=== PATIENT | female | born 1980 | race Caucasian/White ===

== ENCOUNTER 2016-10-20 22:21 | Emergency (ER) | payer OTHER ==
--- NOTE | 2016-10-20 23:50 | PROVIDER DOCUMENTATION ---
HPI-Musculoskeletal Pain/Inj - GENERAL Chief Complaint: Fall Stated Complaint: FALL Time Seen by Provider: 10/20/16 23:39 Source: patient - HX OF PRESENT ILLNESS-MUSKULOSKELTAL Nature of Presenting Problem: 36 y/o WF c/o R shoulder pain s/p fall x 2 hours. Pt states she fell forward with her arm abducted and landed on her RUE. States that now she can't feel anything from her R shoulder down to her fingers, and states it is painful to touch. Pt is tearful and holding her arm in position of comfort. Denies any head injury, LOC, neck pain, back pain. Review of Systems - Adult - REVIEW OF SYSTEMS - ADULT Constitutional: reports: no symptoms reported. denies: chills, fever Eyes: reports: no symptoms reported. denies: blurred vision, double vision Ears, Nose, Mouth & Throat: reports: no symptoms reported. denies: ear pain, nose pain Cardiovascular: reports: no symptoms reported. denies: chest pain, palpitations Respiratory: reports: no symptoms reported. denies: dyspnea on exertion, shortness of breath Gastrointestinal: reports: no symptoms reported. denies: nausea, vomiting Genitourinary: reports: no symptoms reported. denies: dysuria, frequency Musculoskeletal: reports: see HPI, joint pain. denies: back pain, neck pain Integumentary: reports: no symptoms reported. denies: nail changes, rash Neurological: reports: see HPI, numbness. denies: dizziness/vertigo, headache/ migraines, syncope Psychiatric: reports: no symptoms reported Endocrine: reports: no symptoms reported. denies: cold intolerance, heat intolerance Hematologic/Lymphatic: reports: no symptoms reported. denies: easy bruising, prolonged bleeding Allergic/Immunologic: reports: no symptoms reported All Other Systems: Reviewed and Negative Past History - Adult - PAST MEDICAL HISTORY-ADULT Review of Records: reports: Nursing Assessment Review, Medications Reviewed Major Childhood Illnesses: reports: denies history Cardiovascular: reports: denies history Respiratory: reports: denies history Gastrointestinal: reports: denies history Obstetrical/Gynecological: reports: denies history Genitourinary: reports: denies history Musculoskeletal: reports: denies history Neurological: reports: denies history Endocrine/Immune: reports: denies history Other Conditions: reports: denies history - PRIOR SURGERIES/PROCEDURES Surgical/Procedure History: reports: - FAMILY HISTORY Family History: reviewed, not pertinent - SOCIAL HISTORY Smoking: denies Physical Exam-Injury Related - Physical Exam-Injury Related Initial Vital Signs Reviewed: Yes General Appearance: alert, mild distress Eyes: PERRL/EOMI, pink conjunctivae. negative: EOM palsy Head, Ears, Nose, Mouth & Throat: normocephalic/atraumatic, moist mucous membranes Neck: supple, normal inspection Respiratory: lungs clear, normal breath sounds. negative: crackles, rales, rhonchi, stridor, wheezing Cardiovascular: normal peripheral pulses, regular rate, rhythm. negative: bradycardia, tachycardia Peripheral Pulses: radial (R): 2+, radial (L): 2+ Back Exam: normal inspection Extremity: normal inspection, normal capillary refill, abnormal NV exam (Pt states can't feel RUE in any dermatomal pattern). 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 negative: aphasia Psych/Mental Status: normal mood/affect, normal thought content, normal thought process, oriented x 3 Progress - PLAN OF CARE/RESULTS Progress/Plan/Lab Results: Orders Category Date Time Status Arm Sling DIRECTED Care 10/21/16 00:06 Active CLAVICLE-RIGHT [RAD] Stat Exams 10/20/16 23:26 Completed HUMERUS-RIGHT [RAD] Stat Exams 10/20/16 23:26 Completed TRAUMA SHOULDER RIGHT [RAD] Stat Exams 10/20/16 23:26 Completed Hydrocodone/APAP 7.5 mg/325 mg [[place]-7.5] Med 10/21/16 00:06 Discontinued 1 each PO NOW ONE Vital Signs Temp Pulse Resp BP Pulse Ox 10/21/16 00:54 98.5 F 88 18 124/77 100 10/20/16 22:29 98.5 F 95 H 18 155/98 100 No Known Allergies Allergy (Verified 09/14/14 14:52) Norgestimate-Ethinyl Estradiol [Sprintec 28 Day Tablet] 1 tab PO HS 04/26/14 Tramadol [Ultram] 50 mg PO Q8HR #10 tablet 10/21/16 PAIN IN RIGHT SHOULDER (10/20/16) ANESTHESIA OF SKIN (10/20/16) UNSP INJURY OF RIGHT SHOULDER AND UPPER ARM, INIT ENCNTR (10/20/16) UNSPECIFIED FALL, INITIAL ENCOUNTER (10/20/16) Discussed results and f/u with pt. - XRAY 1 XRAY: Right XRAY Study: other (clavicle) XRAY Interpretation: No fx 2 XRAY: Right XRAY Study: Shoulder XRAY Interpretation: Possible fx in humeral head 3 XRAY: Right XRAY Study: Humerus XRAY Interpretation: possible fx in humeral head Procedures - SPLINTING Right Upper Extremity Pre-Procedure Neurovascular Exam: Intact Pre-Fabricated Splint: Arm Sling Applied By: ED Nurse Post Procedure Neurovascular Exam: Intact Procedure Comment: Pt tolerated well Departure - Departure Time of Disposition Order: 00:06 DIAGNOSIS: Right shoulder injury Qualifiers: Encounter type: initial encounter Qualified Code(s): S49.91XA - Unspecified injury of right shoulder and upper arm, initial encounter Disposition: HOME 01 Certified Medical Emergency: Emergent Condition: Stable Additional Instructions: Follow up with specialist for further management. Take medications as needed. RICE as needed. ED Follow Up Instructions: You have been treated by a care provider in the Emergency Department. These instructions are being provided to you so you can have an understanding of how to care for yourself upon discharge. Upon discharge from the Emergency Department, you are responsible for making arrangements for follow-up care by a physician of your choice. Take all prescribed medications as directed. Return to the Emergency Department immediately for any new or worsening symptoms. You may call the Physician Referral phone number at [phone] to obtain a list of Physicians who are taking new patients. Prescriptions: Tramadol [Ultram] 50 mg PO Q8HR #10 tablet Referrals: Angelina Lazaro [Primary Care Provider] - Luis Lopez MD [STAFF PHYSICIAN] - Forms: Return to School/Parent Work Instructions: Shoulder Pain, Tramadol tablets Attestation - Physician/ MARLIN Attestation Patient care was provided by Advanced Practice Provider:: Yes Advanced Practice Provider:: Magad Desai Advanced Practice Provider documentation review:: The Mid-level provider documentation, treatment plan and medical decision making was reviewed by the physician who agrees with all treatment and medical decision making by the MLP.
[2016-10-21] MEDS ORDERED: NORCO-7.5 PO ONE (00:06)
[2016-10-21 00:55] VITALS: BP 124/77
--- NOTE | 2016-10-21 11:39 | Diag Imaging Result Document ---
PROCEDURE NAME: HUMERUS-RIGHT - 10/20/2016 PLAIN RADIOGRAPH OF THE RIGHT HUMERUS, TWO VIEWS: COMPARISON: None available. FINDINGS: There is a nondisplaced fracture at the right humeral head. Please see separate dedicated right shoulder radiograph report for full details. No other discrete fracture, dislocation, or intrinsic osseous lesion is identified involving the humerus. IMPRESSION: Fracture of the humeral head. Please see separate dedicated right shoulder radiograph report.
--- NOTE | 2016-10-21 11:39 | Diag Imaging Result Document ---
PROCEDURE NAME: TRAUMA SHOULDER RIGHT - 10/20/2016 PLAIN RADIOGRAPH OF THE RIGHT SHOULDER, 3 VIEWS: COMPARISON: None available. FINDINGS: There is a nondisplaced fracture involving the right humeral head traversing the greater tuberosity vertically. No other definite fracture, dislocation, or intrinsic osseous lesion is appreciated. The AC joint is unremarkable. Surrounding soft tissues are grossly unremarkable. IMPRESSION: Fracture of the right humeral head as described.
--- NOTE | 2016-10-21 12:30 | Diag Imaging Result Document ---
PROCEDURE NAME: CLAVICLE-RIGHT - 10/20/2016 PLAIN RADIOGRAPH OF THE RIGHT CLAVICLE, 2 VIEWS: COMPARISON: None available. FINDINGS: The clavicle is intact. The AC joint is unremarkable. There is a nondisplaced fracture involving the right humeral head. Please see the separate dedicated right shoulder radiograph report for full details. No other discrete fracture is identified. Surrounding soft tissues are grossly unremarkable. IMPRESSION: Fracture of the right humeral head as described. No clavicular fracture is identified.
== END 2016-10-21 00:55 | disposition home or self-care (01) ==
LOC: P.ED 22:21
DX: S49.91XA Unspecified injury of right shoulder and upper arm, initial encounter (principal); M25.511 Pain in right shoulder; R20.0 Anesthesia of skin; W19.XXXA Unspecified fall, initial encounter
CPT/HCPCS: 73000; 99283